=== PATIENT | male | born 1960 | race Hispanic/Latino ===

== ENCOUNTER 2016-07-26 05:30 | Emergency (ER) | payer MEDICAID ==
[2016-07-26 05:42] VITALS: BP 149/78
--- OUTSIDE RECORDS SUMMARY | 2016-07-26 05:59 | XMS REPORT | Continuity of Care Document ---
:1960 Author Organization [facility] ([facility] Address [address] [place] [address] Phone [phone] Care Team Providers Name Role Phone Tammy aMzariegos Primary Care Provider [phone] Source Comments This disclosure is being made pursuant to the Care Everywhere program, applicable federal and state laws, and may not contain all informaitonavailable regarding this patient.[facility] ([facility]) Active Allergies and Adverse Reactions No Known Allergies Current Medications Prescription Sig. Disp. Refills Start Date End Date Status metFORMIN (GLUCOPHAGE) Take 500 mg by mouth Active 500 mg tablet daily. albuterol (PROVENTIL, Use 2 Puffs by Active VENTOLIN) 90 inhalation every 6 mcg/Actuation inhaler hours as needed. Indications: Chronic Obstructive Pulmonary Disease losartan 100 mg tablet Take 100 mg by mouth Active every evening. Indications: Hypertension hydrOXYzine pamoate Take 1-2 Caps by 80 Cap 0 03/23/2011 Active (VISTARIL) 25 mg mouth 4 times daily capsule as needed for Other. Indications: Anxiety pravastatin 80 mg Take 80 mg by mouth Active tablet every evening. albuterol-ipratropium Use 3 mL by Active 2.5-0.5 mg/3 mL inhalation every 6 inhalation solution hours as needed. Active Problems Problem Noted Date Pain in joint, ankle and foot 03/02/2001 Social History Tobacco Use Types Packs/Day Years Used Date Current Every Day Smoker 2 28 Smokeless Tobacco: Never Used Alcohol Use Drinks/Week oz/Week Comments Yes 50 beers/week Last Filed Vital Signs Vital Sign Reading Time Taken Blood Pressure 147/91 03/23/2011 12:00 PM GEAR TESTER Pulse 71 03/23/2011 12:00 PM GEAR TESTER Temperature 35.9 C (96.6 F) 03/23/2011 11:35 AM GEAR TESTER Respiratory Rate 20 03/23/2011 12:00 PM GEAR TESTER Height 1.705 m (5' 7.13") 02/24/2011 1:45 PM CDT Weight 113.2 kg (249 lb 9 oz) 03/23/2011 8:30 AM GEAR TESTER Body Mass Index 38.94 03/23/2011 8:30 AM GEAR TESTER Oxygen Saturation 100% 03/23/2011 12:00 PM GEAR TESTER Plan of Care Health Maintenance Due Date Last Done Comments HCV Screening 1960 Hepatitis B Vaccine (1 of 3 - Primary Series) 1960 Tdap Vaccine 1973 Lipid Disorder Screening 1980 MMR Vaccine 1980 Td Vaccine 1980 Pneumococcal Vaccine (1 of 1 - PPSV23) 1981 Colonoscopy 11/12/2012 Prostate Cancer Screening 2012 Influenza Vaccine: Seasonal (#1) 11/25/2015 Results from Last 3 Months Not on file
[2016-07-26] MEDS ORDERED: AMOX TR/POTASSIUM CLAVULANATE 875 MG TABLET PO ONE (06:09)
--- NOTE | 2016-07-26 06:09 | ERNOTE ---
ENT HPI Date of Service: 07/26/16 Presenting Symptoms: other - nose pain Time Seen by Provider: 07/26/16 05:36 Source: patient - Immun/Allergies/Home Medications Immunizations: IMMUNIZATION HX Immunizations Up to Date No History of Influenza Vaccine No Hx Pneumococcal Vaccination No Allergies/Adverse Reactions: Allergies Allergy/AdvReac Type Severity Reaction Status Date / Time No Known Allergies Allergy Verified 07/26/16 05:42 Home Medications: HOME MEDICATIONS Albuterol Sulfate [Proair Hfa] 1 - 2 puff IH QID PRN 08/01/12 [Last Taken Unknown] Losartan Potassium [Cozaar] 100 mg PO DAILY 08/01/12 [Last Taken Unknown] Pravastatin Sodium [Pravachol] 80 mg PO DAILY 08/01/12 [Last Taken Unknown] Albuterol Sulfate/Ipratropium [Duoneb 2.5-0.5MG/3ML Soln] 3 ml IH TID 12/11/13 [ Last Taken Unknown] Levofloxacin [Levaquin] 500 mg PO DAILY #14 tab 03/02/15 [Last Taken Unknown] metFORMIN HCL [Glucophage] 500 mg PO TID #90 tablet 03/02/15 [Last Taken Unknown ] Amox Tr/Potassium Clavulanate [Augmentin 875-125 Tablet] 875 mg PO Q12H #20 tab 07/26/16 [Last Taken Unknown] - History of Present Illness Narrative: PT HAS HAD C/O OF SORE TIP OF HIS NOSE FOR THAT PAST WEEK. NO HISTORY OF TRAUMA. HE DENIES PICKING AT HIS NOSE. HE WENT TO ER IN [facility] ON WEDNESDAY AND THEY THOUGHT HE HAD A COULD. THIS AM HE NOTED SOME BLEEDING OF HIS LEFT NOSTRIL . HE STOPPED BEFORE HE ARRIVED. HE SAYS THE TIP OF HIS NOSE IS REDDER AND MORE SWOLLEN AND HURTS MORE ALSO. NO FEVERS. Severity: Present: moderate ENT Location: Present: nose Prearrival Treatment: Present: no prearrival treatment Prior Treament: Reports: recently seen. Denies: similar symptoms before Review of Systems - Review of Systems Constitutional: Present: See HPI EYE: Present: eye discharge - HE STATES HE HAS HAD A LITTLE MUCOUS FROM THE LEFT EYE THIS MORNING. ENT: Present: See HPI, nose pain Respiratory: Present: no symptoms reported Cardiology: Present: no symptoms reported Gastrointestinal/Abdominal: Present: no symptoms reported Genitourinary: Present: hematuria Musculoskeletal: Present: no symptoms reported Skin: Present: See HPI - REDNESS AND SWELLING TO THE TIP OF HIS NOSE Neurological: Present: no symptoms reported Endocrine: Present: no symptoms reported Hematologic/Lymphatic: Present: no symptoms reported Psych: Present: no symptoms reported All Other Systems: All systems neg except as marked - Patient's Past Medical History Patient History - Medical: Diabetes Type 2, Obesity Patient History - Cardiac/Respiratory: COPD, Hypertension, Hyperlipidemia Patient History - Surgical Procedures: No surgical history - Social History Living Situations: alone Smoking Status: Current every day smoker Patient requests Smoking Cessation Consult: No Initiate information on Smoking Cessation: No Alcohol Use: heavy Drug Use: none - Immunizations Immunizations Up to Date: No Hx Pneumococcal Vaccination: No History of Influenza Vaccine: No Physical Exam - Physical Exam General Appearance: Present: wd/wn, alert, moderate distress, anxious, other - HE SMELLS HEAVILY OF CIGARETTES AND DOES NOT HAVE THE BEST HYGEINE Eye Exam: Eye drainage: left - MILD AMOUNT OF YELLOWISH MUCOUS. NO CONJUNCTIVAL ERYTHEMA. Ears, Nose, Throat: Present: normal except - - TIP OF HIS NOSE IS RED AND TENDER AND MODERATELY SWOLLEN. THERE SPPEARS TO BE A SMALL AMOUNT OF PUS DRAINAGE FOR THE LEFT NOSTRIL TO DISTAL , MEDIAL SUPERIOR AREA. THERE IS NO ACTIVE BLEEDING. THE NOSE IS NOT OBSTRUCTED. , other - HE IS EDENTULOUS. Absent : nasal congestion, pharyngeal erythema Neck: Present: normal inspection, nontender ED Progress - Vital Signs Vital Signs: Vital Signs 07/26/16 05:38 Temperature 36.7 C Pulse Rate 85 Respiratory 20 Rate Blood Pressure 149/78 O2 Sat by Pulse 98 Oximetry - Progress/Reassessment Chief Complaint: Nose Pain/Injury Departure Clinical Impression: Infected lesion in nose - Departure Disposition: Home Follow Up Needed Condition: Good Instructions: Cellulitis, Adult, [id number] Additional Instructions: You have an infection to the tip of your nose. USE WARM COMPRESSES TO THE NOSE FOR 20-30 MINS EVERY 4 HOURS. APPLY A SMALL AMOUNT OF TRIPLE ANTIBIOTIC OINTMENT IN TO THE FRONT PART OF EACH NOSTRIL 3-4 TIMES A DAY. TAKE THE ANTIBIOTIC DIRECTED. I HAVE SENT A CULTURE OF THE DRAINAGE FROM THE LEFT SIDE OF THE TIP OF THE NOSE. IF THE CULTURE SHOWS THAT A DIFFERENT ANTIBIOTIC WOULD BE BETTER WE WILL CALL YOU TO CHANGE IT. RECHECK WITH YOUR FAMILY DOCTOR IN 3-4 DAYS IF NOT GRADUALLY IMPROVING OR SOONER IF IT IS WORSE. Referrals: MARIA EUGENIA NEVAREZ [Primary Care Provider] - Prescriptions: Amox Tr/Potassium Clavulanate [Augmentin 875-125 Tablet] 875 mg PO Q12H #20 tab
[2016-07-26] MEDS ORDERED: AMOX TR/POTASSIUM CLAVULANATE 875 MG TABLET ONE (06:10)
== END 2016-07-26 06:27 | disposition home or self-care (01) ==
LOC: ER 05:30
DX: J34.89 Other specified disorders of nose and nasal sinuses (principal); L08.9 Local infection of the skin and subcutaneous tissue, unspecified; F17.200 Nicotine dependence, unspecified, uncomplicated

== ENCOUNTER 2016-09-02 21:58 | Emergency (ER) | payer MEDICAID ==
[2016-09-02 23:08] VITALS: BP 156/98
--- OUTSIDE RECORDS SUMMARY | 2016-09-02 23:16 | XMS REPORT | Continuity of Care Document ---
:1960 Author Organization [facility] ([facility]) Address [address] [place] [address] Phone [phone] Care Team Providers Name Role Phone Tammy Mazariegos Primary Care Provider [phone] Source Comments This disclosure is being made pursuant to the Care Everywhere program, applicable federal and state laws, and may not contain all informaitonavailable regarding this patient.[facility] ([facility]) Active Allergies and Adverse Reactions No Known [...] Taken Blood Pressure 147/91 03/23/2011 12:00 PM COMPUTER GAME TESTER Pulse 71 03/23/2011 12:00 PM COMPUTER GAME TESTER Temperature 35.9 C (96.6 F) 03/23/2011 11:35 AM COMPUTER GAME TESTER Respiratory Rate 20 03/23/2011 12:00 PM COMPUTER GAME TESTER Height 1.705 m (5' 7.13") 02/24/2011 1:45 PM CDT Weight 113.2 kg (249 lb 9 oz) 03/23/2011 8:30 AM COMPUTER GAME TESTER Body Mass Index 38.94 03/23/2011 8:30 AM COMPUTER GAME TESTER Oxygen Saturation 100% 03/23/2011 12:00 PM COMPUTER GAME TESTER Plan of Care Health Maintenance Due [...]
== END 2016-09-02 23:20 | disposition home or self-care (01) ==
LOC: ER 21:58
DX: Z48.00 Encounter for change or removal of nonsurgical wound dressing (principal)

== ENCOUNTER 2016-09-26 12:19 | Emergency (ER) | payer MEDICAID ==
[2016-09-26 12:19] VITALS: BP 164/90
--- OUTSIDE RECORDS SUMMARY | 2016-09-26 13:02 | XMS REPORT | Continuity of Care Document ---
:1960 Author Organization [facility] ([facility]) Address [address] [place] [address] Phone [phone] Care Team Providers Name Role Phone Tammy Mazariegos Primary Care Provider [phone] Source Comments This disclosure is being made pursuant to the Care Everywhere program, applicable federal and state laws, and may not contain all informaitonavailable regarding this patient.[facility] ([facility]) Active Allergies and Adverse Reactions No [...] Taken Blood Pressure 147/91 03/23/2011 12:00 PM BEAD WRAPPER Pulse 71 03/23/2011 12:00 PM BEAD WRAPPER Temperature 35.9 C (96.6 F) 03/23/2011 11:35 AM BEAD WRAPPER Respiratory Rate 20 03/23/2011 12:00 PM BEAD WRAPPER Height 1.705 m (5' 7.13") 02/24/2011 1:45 PM CDT Weight 113.2 kg (249 lb 9 oz) 03/23/2011 8:30 AM BEAD WRAPPER Body Mass Index 38.94 03/23/2011 8:30 AM BEAD WRAPPER Oxygen Saturation 100% 03/23/2011 12:00 PM BEAD WRAPPER Plan of Care Health Maintenance Due Date [...]
== END 2016-09-26 12:45 | disposition home or self-care (01) ==
LOC: ER 12:19
DX: Z48.00 Encounter for change or removal of nonsurgical wound dressing (principal)

== ENCOUNTER 2016-12-27 08:59 | Emergency (ER) | payer MEDICAID ==
[2016-12-27 09:09] VITALS: BP 169/109
[2016-12-27] MEDS ORDERED: LIDOCAINE HCL 20 ML VIAL ONE (09:20)
--- NOTE | 2016-12-27 09:41 | ERNOTE ---
Integumentary HPI - Narrative Date of Service: 12/27/16 - General Source: patient - Immun/Allergies/Home Medications Immunizations: IMMUNIZATION HX Immunizations Up to Date Yes History of Influenza Vaccine No Hx Pneumococcal Vaccination No Allergies/Adverse Reactions: Allergies Allergy/AdvReac Type Severity Reaction Status Date / Time No Known Allergies Allergy Verified 12/27/16 09:09 Home Medications: HOME MEDICATIONS Albuterol Sulfate [Proair Hfa] 1 - 2 puff IH QID PRN 08/01/12 [Last Taken Unknown] Losartan Potassium [Cozaar] 100 mg PO DAILY 08/01/12 [Last Taken Unknown] Pravastatin Sodium [Pravachol] 80 mg PO DAILY 08/01/12 [Last Taken Unknown] Albuterol Sulfate/Ipratropium [Duoneb 2.5-0.5MG/3ML Soln] 3 ml IH TID 12/11/13 [ Last Taken Unknown] metFORMIN HCL [Glucophage] 500 mg PO TID #90 tablet 03/02/15 [Last Taken Unknown ] traMADol HCL [Ultram] 50 mg PO QID PRN #20 tab 10/17/16 [Last Taken Unknown] Clindamycin HCl [Cleocin HCl] 300 mg PO QID #40 capsule 12/27/16 [Last Taken Unknown] HYDROcodone/ACETAMINOPHEN [Eagan 5-325] 1 tab PO Q4H PRN #40 tab 12/27/16 [Last Taken Unknown] - History of Present Illness Narrative: 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: Reports: other - buttocks Quality: Reports: painful Severity: moderate Modifying Factors - (Improves): Reports: nothing Modifying Factors - (Worsens): Reports: nothing Associated Symptoms: Reports: change in skin texture, swelling/mass/lumps Review of Systems - Review of Systems Constitutional: Present: See HPI EYE: Present: no symptoms reported ENT: Present: no symptoms reported Respiratory: Present: no symptoms reported Cardiology: Present: no symptoms reported Gastrointestinal/Abdominal: Present: no symptoms reported Genitourinary: Present: no symptoms reported Musculoskeletal: Present: no symptoms reported Skin: Present: See HPI, lesions Neurological: Present: no symptoms reported Endocrine: Present: no symptoms reported Hematologic/Lymphatic: Present: no symptoms reported Psych: Present: no symptoms reported - Patient's Past Medical History Patient History - Medical: Diabetes Type 2, Hypothyroidism, Obesity Patient History - Cardiac/Respiratory: COPD, Hypertension, Hyperlipidemia Patient History - Cancer: No Hx of Cancer Patient History - Surgical Procedures: No surgical history Patient History - Other: None - Family History Mother Family History - Medical: , Diabetes Type 2 Insulin Dependent Family History - Cardiac/Respiratory: Hypertension, Hyperlipidemia Father Family History - Medical: Family History - Cardiac/Respiratory: Myocardial Infarction - Social History Living Situations: alone Psych History: No pertinent hx Smoking Status: Current every day smoker Have you smoked in the past 12 months: Yes Do you dip or chew tobacco: No Alcohol Use: heavy Drug Use: none - Immunizations Immunizations Up to Date: Yes Hx Pneumococcal Vaccination: No History of Influenza Vaccine: No Physical Exam - Physical Exam General Appearance: Present: wd/wn, alert, moderate distress Head Exam: Present: normal inspection, no evidence of injury Eye Exam: Normal inspection: bilateral, PERRL: bilateral, EOMI: bilateral, Other : bilateral Ears, Nose, Throat: Present: normal ENT inspection Neck: Present: normal inspection, nontender Respiratory: Present: no respiratory distress, normal breath sounds, no accessory muscle use, chest nontender, lungs clear Cardiovascular/Chest: Present: regular rate, rhythm, no murmur, normal peripheral pulses Peripheral Pulses: N=norm/S=strong/W=weak/B=bound/A=absent: Carotid (R): Normal , Carotid (L): Normal, Radial (R): Normal, Radial (L): Normal, Femoral (R): Normal, Femoral (L): Normal, Dorsalis-pedis (R): Normal, Dorsalis-pedis (L): Normal Gastrointestinal/Abdominal: Present: normal bowel sounds, nontender, nondistended, soft, no organomegaly Male Genitals Exam: Present: normal genitalia Back Exam: Present: normal inspection, normal range of motion, no CVA tenderness , no vertebral tenderness Extremity Exam: Present: normal inspection, non-tender, normal range of motion, no edema Neurological Exam: Present: alert, oriented, normal mood/affect, no motor/ sensory deficits DTR: N=norm/NB=norm/brisk/A=abs/DD=dull/dimin/HC=hyperactive: Bicep (R): Normal , Bicep (L): Normal, Tricep (R): Normal, Tricep (L): Normal, Knee (R): Normal, Knee (L): Normal, Ankle (R): Normal, Ankle (L): Normal Skin Exam: Present: normal color, warm/dry, other - abscess at cleft of buttocks ED Progress - Vital Signs Patient's Vital Signs:: I have reviewed the patient's vital signs. Vital Signs: Vital Signs 12/27/16 12/27/16 09:03 09:11 Temperature 35.9 C L 35.9 C L Pulse Rate 87 87 Respiratory 16 16 Rate Blood Pressure 169/109 169/109 O2 Sat by Pulse 96 96 Oximetry - Progress/Reassessment Chief Complaint: Abscess Progress:: Improved - Transfer of Care Expected Disposition: Discharge Procedures Buttock Anesthesia: 1% Lidocaine Blade Size: 15 Findings and Actions: purulent drainage large Complications: Pt celine procedure well Departure Clinical Impression: Abscess - Departure Disposition: Home self-care Condition: Fair Instructions: Perirectal Abscess Referrals: MARIA EUGENIA NEVAREZ [Primary Care Provider] - Prescriptions: Clindamycin HCl [Cleocin HCl] 300 mg PO QID #40 capsule HYDROcodone/ACETAMINOPHEN [Eagan 5-325] 1 tab PO Q4H PRN #40 tab PRN Reason: Pain
== END 2016-12-27 09:48 | disposition home or self-care (01) ==
LOC: ER 08:59
PROC: 0H98XZZ Drainage of Buttock Skin, External Approach (ICD-10-PCS; principal; 2016-12-27)
DX: L02.31 Cutaneous abscess of buttock (principal); F17.200 Nicotine dependence, unspecified, uncomplicated; E11.9 Type 2 diabetes mellitus without complications; E78.5 Hyperlipidemia, unspecified; I10 Essential (primary) hypertension; J44.9 Chronic obstructive pulmonary disease, unspecified

== ENCOUNTER 2017-03-23 10:52 | Emergency (ER) | payer MEDICAID ==
--- NOTE | 2017-03-23 11:15 | ERNOTE ---
Upper Extremity HPI - Narrative Date of Service: 03/23/17 - General Extremities Pain Location: wrist: left Time Seen by Provider: 03/23/17 11:03 Source: patient, RN notes reviewed Exam Limitations: no limitations - Immun/Allergies/Home Medications Immunizations: IMMUNIZATION HX Immunizations Up to Date Yes History of Influenza Vaccine Yes Hx Pneumococcal Vaccination No Allergies/Adverse Reactions: Allergies Allergy/AdvReac Type Severity Reaction Status Date / Time No Known Allergies Allergy Verified 03/23/17 11:02 Home Medications: HOME MEDICATIONS Albuterol Sulfate [Proair Hfa] 1 - 2 puff IH QID PRN 08/01/12 [Last Taken Unknown] Losartan Potassium [Cozaar] 100 mg PO DAILY 08/01/12 [Last Taken Unknown] Pravastatin Sodium [Pravachol] 80 mg PO DAILY 08/01/12 [Last Taken Unknown] Albuterol Sulfate/Ipratropium [Duoneb 2.5-0.5MG/3ML Soln] 3 ml IH TID 12/11/13 [ Last Taken Unknown] metFORMIN HCL [Glucophage] 500 mg PO TID #90 tablet 03/02/15 [Last Taken Unknown ] - History of Present Illness Narrative: 56 year old male presents with a painful lump in his left wrist that he noticed 3 days ago. He is not aware of any injury. 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 He has not taken anything for pain. Method of Injury: Reports: no apparent injury Associated Symptoms: Reports: weakness. Denies: tingling, numbness distally, loss of feeling Prior Treament: Denies: recently seen, similar symptoms before Review of Systems - Review of Systems Constitutional: Absent: recent illness, fever, chills, malaise EYE: Present: no symptoms reported ENT: Present: no symptoms reported Respiratory: Present: no symptoms reported Cardiology: Present: no symptoms reported Gastrointestinal/Abdominal: Present: no symptoms reported Genitourinary: Present: no symptoms reported Musculoskeletal: Present: joint pain, joint swelling Skin: Present: lumps. Absent: rash, lesions, change in color Neurological: Present: See HPI Endocrine: Present: no symptoms reported Hematologic/Lymphatic: Present: no symptoms reported Psych: Present: no symptoms reported - Patient's Past Medical History Patient History - Medical: Diabetes Type 2, Hypothyroidism, Obesity Patient History - Cardiac/Respiratory: COPD, Hypertension, Hyperlipidemia Patient History - Cancer: No Hx of Cancer Patient History - Surgical Procedures: No surgical history Patient History - Other: None - Family History Mother Family History - Medical: , Diabetes Type 2 Insulin Dependent Family History - Cardiac/Respiratory: Hypertension, Hyperlipidemia Father Family History - Medical: Family History - Cardiac/Respiratory: Myocardial Infarction - Social History Living Situations: home Psych History: No pertinent hx Smoking Status: Current every day smoker Alcohol Use: heavy Drug Use: none - Immunizations Immunizations Up to Date: Yes Hx Pneumococcal Vaccination: No History of Influenza Vaccine: Yes Physical Exam - Physical Exam Narrative: Walking in and out of exam room, trying to get a signal on his phone General Appearance: Present: alert, no apparent distress, obese, other - Dirty appearance Respiratory: Present: no respiratory distress, no accessory muscle use Cardiovascular/Chest: Present: normal peripheral pulses Peripheral Pulses: N=norm/S=strong/W=weak/B=bound/A=absent: Radial (R): Normal, Radial (L): Normal Extremity Exam: Present: normal except - - Palpable mass left wrist at distal aspect of ulna, tender to palpation, no erythema or ecchymosis present, normal range of motion, no edema Neurological Exam: Present: alert, oriented, normal mood/affect, no motor/ sensory deficits Skin Exam: Present: normal color, warm/dry ED Progress - Vital Signs Patient's Vital Signs:: I have reviewed the patient's vital signs. Vital Signs: Vital Signs 03/23/17 10:58 Temperature 36.0 C L Pulse Rate 92 Respiratory 16 Rate Blood Pressure 142/92 O2 Sat by Pulse 99 Oximetry - X-Ray X-Ray #1 X-Ray: wrist Interpretation: Reviewed by me X-ray Comments: IMPRESSION: Soft tissue swelling along the radial and ulnar aspects of the wrist. Consider underlying tendinitis/tenosynovitis. If there is a concern for palpable mass, consider nonemergent cross- sectional imaging such as CT or MRI. No acute osseous finding. Stable metallic foreign body within the left hand. Electronically signed by Robina Bell M.D.. - Progress/Reassessment Chief Complaint: Wrist Injury/Pain Progress:: Unchanged Departure Clinical Impression: Ganglion cyst of wrist Qualifiers: Laterality: left Qualified Code(s): M67.432 - Ganglion, left wrist - Departure Disposition: Home Follow Up Needed Condition: Stable Instructions: Ganglion Cyst Additional Instructions: Tylenol for pain as directed on label Ice to sore area 20 minutes on and at least 20 minutes off in between Contact orthopedics to schedule follow up Referrals: Rony Acharya PAC [[facility]] -
[2017-03-23 12:02] VITALS: BP 128/75
== END 2017-03-23 12:25 | disposition home or self-care (01) ==
LOC: ER 10:52
DX: M67.432 Ganglion, left wrist (principal); F17.200 Nicotine dependence, unspecified, uncomplicated; E11.9 Type 2 diabetes mellitus without complications; E78.5 Hyperlipidemia, unspecified; I10 Essential (primary) hypertension; J44.9 Chronic obstructive pulmonary disease, unspecified